=== PATIENT | male | born 1995 | race American Indian/Alaskan Native ===

== ENCOUNTER 2018-07-20 10:29 | Emergency (ER) | payer OTHER ==
[2018-07-20 10:34] VITALS: BP 114/75
[2018-07-20] MEDS ORDERED: XYLOCAINE 1% MPF 5 mL INFILTRATI ONE (11:49)
[2018-07-20] MEDS ORDERED: ROCEPHIN IM ONE (11:49)
[2018-07-20] MEDS ORDERED: ZITHROMAX PO ONE (11:50)
--- NOTE | 2018-07-20 11:52 | Emergency Department Report ---
HPI - General Chief Complaint: Urogenital-Male Time Seen by Provider: 07/20/18 11:42 - HPI HPI: 22-year-old -[place] male presents to the emergency department originally for the request of an STD panel. However his significant other is currently in the room and says that she was just diagnosed with chlamydia and they have been sexually active together without protection. Patient does not have any current discharge, dysuria, lesions. He denies any history of STD. ED Past Medical Hx - Past Medical History Previous Medical History?: No - Surgical History Past Surgical History?: No - Social History Smoking Status: Former Smoker Substance Use Type: None ED Review of Systems ROS: Stated complaint: STD Other details as noted in HPI Constitutional: denies: chills, fever Genitourinary: denies: dysuria, discharge Skin: denies: rash, lesions Physical Exam - Physical Exam Vital Signs: Vital Signs 07/20/18 10:33 Temperature 97.9 F Pulse Rate 60 Respiratory 16 Rate Blood Pressure 114/75 O2 Sat by Pulse 99 Oximetry Physical Exam: GENERAL: The patient is well-developed well-nourished. HEENT: Normocephalic. Atraumatic. Patient has moist mucous membranes. EYES: Extraocular motions are intact. NECK: Supple. Trachea is midline. CHEST/LUNGS: Clear to auscultation. There is no respiratory distress noted. HEART/CARDIOVASCULAR: Regular. There is no tachycardia. There is no obvious murmur. ABDOMEN: There is no abdominal distention. SKIN: Skin is warm and dry. NEURO: The patient is awake, alert, and oriented. The patient is cooperative. The patient has no focal neurologic deficits. The patient has normal speech. MUSCULOSKELETAL: There is no tenderness or deformity. There is no evidence of acute injury. : Deferred ED Course Vital Signs 07/20/18 10:33 Temperature 97.9 F Pulse Rate 60 Respiratory 16 Rate Blood Pressure 114/75 O2 Sat by Pulse 99 Oximetry ED Medical Decision Making - Medical Decision Making Patient presents to the emergency department with the complaint of exposure to STD. His significant other is bedside and says that she was recently diagnosed with chlamydia and they have been sexually active without protection. He will be treated empirically with Rocephin and azithromycin. He was given referrals for [facility] and the [facility]. He understands that they should refrain from any sexual intercourse or even any sexual contact for at least 7 days. Critical Care Time: No Critical care attestation.: If time is entered above; I have spent that time in minutes in the direct care of this critically ill patient, excluding procedure time. ED Disposition Clinical Impression: Exposure to STD Disposition: DC-01 TO HOME OR SELFCARE Is pt being admited?: No Condition: Stable Instructions: Sexually Transmitted Diseases (ED), Safe Sex (ED) Additional Instructions: Please follow up with a primary care physician or the health department. Return to the emergency Department with any worsening of your symptoms or any acute distress. Please refrain from any sexual contact for at least one week. Referrals: [facility] [Outside] - 3-5 Days [facility] [Outside] - 3-5 Days Time of Disposition: 11:52
== END 2018-07-20 12:22 | disposition home or self-care (01) ==
LOC: ED 10:29
DX: Z20.2 Contact with and (suspected) exposure to infections with a predominantly sexual mode of transmission (principal); Z91.018 Allergy to other foods
CPT/HCPCS: 96372; 99282; J0696